=== PATIENT | female | born 1995 | race Caucasian/White ===

== ENCOUNTER 2019-01-09 04:54 | Emergency (ER) | payer BC ==
--- NOTE | 2019-01-09 05:39 | EDM.PDOC ---
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 Deshpande is a very pleasant 23-year-old woman who is 12 weeks 4 days gestation of her first . LMP 10/13/2018. WIN 07/20/2019. She has undergone 3 obstetric ultrasounds so far, with the most recent around 12/23/2018 , confirming a SLIUP with no mention of placenta previa. The patient states that she woke around 4:20 this morning, then noticed that she had painless vaginal bleeding around 4:30. No prior bleeding during this . No recent illnesses. The patient states that the amount of bleeding has now diminished considerably. heart tones here in the ED are 157. The patient's blood type is O-positive. The patient's Intrusion Analyst is Dr. Hilda Correia, in [place]. The patient did receive an influenza vaccine this season. 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: Endometriosis (laparoscopy-confirmed) Endocrine/Metabolic History: Reports: Hypothyroidism - Past Surgical History HEENT Surgical History: Reports: Eye Surgery (left strabismus) Female Surgical History: Reports: Other (See Below) (Exploratory laparoscopy for endometriosis) Musculoskeletal Surgical History: Reports: Other (See Below) (Coccyx removed as an infant) Social & Family History - Tobacco Use Smoking Status *Q: Never Smoker - Caffeine Use Caffeine Use: Reports: Coffee - Alcohol Use Alcohol Use History: Yes Alcohol Use Frequency: Socially (when not ) - Recreational Drug Use Recreational Drug Use: No - Living Situation & Occupation Living situation: Reports: , with Spouse Occupation: Employed ([employer]) ED ROS GENERAL - Review of Systems Review Of Systems: ROS reveals no pertinent complaints other than HPI. ED EXAM - Physical Exam Exam: See Below Exam Limited By: No Limitations General Appearance: Alert, WD/WN, No Apparent Distress Eye Exam: Bilateral Eye: EOMI, Normal Inspection Ears: Normal External Exam, Hearing Grossly Normal Nose: Normal Inspection Throat/Mouth: Normal Inspection, Normal Lips, Normal Voice, No Airway Compromise Head: Atraumatic, Normocephalic Neck: Normal Inspection, Full Range of Motion Respiratory/Chest: No Respiratory Distress, Lungs Clear, Normal Breath Sounds, No Accessory Muscle Use Cardiovascular: Normal Peripheral Pulses, Regular Rate, Rhythm, No Gallop, No JVD, No Murmur, No Rub GI/Abdominal Exam: Normal Bowel Sounds, Soft, Non-Tender, No Organomegaly, No Distention, No Abnormal Bruit, Mass (Gravid uterus consistent with dates) Rectal Exam: Deferred Back Exam: Normal Inspection, Full Range of Motion, NT Extremities: Normal Inspection, Normal Range of Motion, No Pedal Edema, Normal Capillary Refill Neurological: Alert, Oriented, Normal Cognition, No Motor/Sensory Deficits Psychiatric: Normal Affect Skin Exam: Warm, Dry, Intact, Normal Color, No Rash Course - Vital Signs Last Recorded V/S: Last Vital Signs Temp 37.0 C 01/09/19 05:00 Pulse 85 01/09/19 05:00 Resp 16 01/09/19 05:00 BP 119/81 01/09/19 05:00 Pulse Ox 96 01/09/19 05:00 - Re-Assessments/Exams Free Text/Narrative Re-Assessment/Exam: 01/09/19 05:34 The heart tones were about 157. We discussed the option of obtaining an ultrasound and/or a quantitative hCG, however, the patient and her are satisfied with my explanation of the likely cause of the bleeding, that is, of a subchorionic tear. I explained that this threatens the , but that management at this stage is expectant until the symptoms either resolve or progress to an inevitable, incomplete, or complete . At this time, however, with normal heart tones, the fetus appears to be in good shape. Since the bleeding is already tapering off, and the patient has no pain associated with the bleeding, the patient opted to not undergo an ultrasound. Similarly, because heart tones are acquireable, quantitative hCGs are no longer really useful. Since the patient's blood type is O-positive, she does not need RhoGAM. The patient will contact her Intrusion Analyst's office later this morning, and follow-up at her direction. Departure - Departure Time of Disposition: 05:37 Disposition: Home, Self-Care 01 Condition: Good Clinical Impression: Threatened - Discharge Information *PRESCRIPTION DRUG MONITORING PROGRAM REVIEWED*: Not Applicable *COPY OF PRESCRIPTION DRUG MONITORING REPORT IN PATIENT SERGIO: Not Applicable Referrals: Hilda Correia MD [Ordering Only Provider] - Additional Instructions: You were seen in the emergency room after developing vaginal bleeding during your 12th weeks of , this morning. heart tones in the ER were normal at 157. The option of an obstetric ultrasound to evaluate for the source of the bleeding was offered, but declined. Based on your history and physical examination, you are suffering a threatened . We recommend that you contact the office of your Intrusion Analyst, Dr. Hilda Correia, this morning, and follow-up with her at her direction. If any other problems, including worsening bleeding or the development of pain, please do not hesitate to return to the ER.
== END 2019-01-09 05:51 | disposition home or self-care (01) ==
LOC: JD.ED 04:54
DX: O20.0 Threatened abortion (principal); O99.281 Endocrine, nutritional and metabolic diseases complicating pregnancy, first trimester; E03.9 Hypothyroidism, unspecified; Z3A.12 12 weeks gestation of pregnancy; Z79.890 Hormone replacement therapy
CPT/HCPCS: 99282; 99283

== ENCOUNTER 2019-07-20 06:51 | Inpatient (IN) | payer BC ==
[2019-07-20] MEDS ORDERED: Nalbuphine 10 MG/ML Syringe IVPUSH PRN (07:03)
[2019-07-20] MEDS ORDERED: Sodium Chloride 0.9% 10 ML Syringe FLUSH PRN (07:03)
[2019-07-20] MEDS ORDERED: Ondansetron 4 MG/2 ML SDV IVPUSH PRN (07:03)
[2019-07-20] MEDS ORDERED: Misoprostol 25 MCG (1/4 of 100 MCG) Tab ONE (07:10)
[2019-07-20] MEDS ORDERED: Oxytocin/Lactated Ringers 10 UNIT/1,000 ML BAG IV SCH ×2 (07:15)
--- NOTE | 2019-07-20 07:23 | PCM.LDHP ---
L&D History of Present Illness - General Date of Service: 07/20/19 Admit Problem/Dx: Patient Status Order with Admit Dx/Problem 07/20/19 07:04 Patient Status [ADT] Routine Admission Diagnosis/Problem Admission Diagnosis/Problem Gestational diabetes mellitus Source of Information: Patient History Limitations: Reports: No Limitations - History of Present Illness Introduction:: patient is a 23-year-old at 39-2/7 weeks presents for induction of labor for gestational diabetes which is insulin controlled. Doing well. Notes good movement. No signs or symptoms of labor. 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 : 1 Para: 0 Neurological History: Reports: Migraines Endocrine/Metabolic History: Reports: Hypothyroidism - Past Surgical History HEENT Surgical History: Reports: Eye Surgery (left) Female Surgical History: Reports: Other (See Below) (Diagnostic laparoscopy for endometriosis and cocurrent hysteroscopy) Musculoskeletal Surgical History: Reports: Other (See Below) (Coccyx removed as an infant) Social & Family History - Family History Family Medical History: Noncontributory - Tobacco Use Smoking Status *Q: Never Smoker - Caffeine Use Caffeine Use: Reports: Coffee - Alcohol Use Alcohol Use History: No - Recreational Drug Use Recreational Drug Use: No - Living Situation & Occupation Living situation: Reports: , with Spouse Occupation: Employed ([employer]) H&P Review of Systems - Review of Systems: Review Of Systems: See Below General: Reports: No Symptoms Pulmonary: Reports: No Symptoms Cardiovascular: Reports: No Symptoms Gastrointestinal: Reports: No Symptoms Genitourinary: Reports: No Symptoms Musculoskeletal: Reports: No Symptoms Psychiatric: Reports: No Symptoms Neurological: Reports: No Symptoms L&D Exam - Exam Exam: See Below - OB Specific Contraction Intensity: Irritability Movement: Active Heart Tones: Present Heart Tones per Min: 135 Heart Rate (FHR) Variability: Moderate (6-25 bmp) Presentation: Vertex - Willett Score Willett Score Cervix Position: Midposition Willett Score Consistency: Soft Willett Score Effacement: 51-70% Willett Score Dilation: 1-2 cm Willett Score 's Station: -2 Willett Score Total: 7 - Exam General: Alert, Oriented, Cooperative Lungs: Clear to Auscultation, Normal Respiratory Effort Cardiovascular: Regular Rate, Regular Rhythm GI/Abdominal Exam: Soft, Non-Tender Genitourinary: Normal external exam Extremities: Normal Inspection Skin: Warm, Dry, Intact - Patient Data Result Diagrams: 07/20/19 07:48 - Problem List (1) 39 weeks gestation of SNOMED Code(s): 24184931 ICD Code: Z3A.39 - 39 WEEKS GESTATION OF Status: Acute Current Visit: Yes (2) Hypothyroid SNOMED Code(s): 70675819 ICD Code: E03.9 - HYPOTHYROIDISM, UNSPECIFIED Status: Acute Current Visit : Yes Qualifiers: Hypothyroidism type: unspecified Qualified Code(s): E03.9 - Hypothyroidism , unspecified (3) Insulin controlled gestational diabetes mellitus (GDM) during SNOMED Code(s): 88785708 ICD Code: O24.414 - GESTATIONAL DIABETES IN , INSULIN CONTROLLED Status: Acute Current Visit: Yes Qualifiers: Trimester: third trimester Qualified Code(s): O24.414 - Gestational diabetes mellitus in , insulin controlled (4) GBS carrier SNOMED Code(s): 9367323779125 ICD Code: Z22.330 - CARRIER OF GROUP B STREPTOCOCCUS Status: Acute Current Visit: Yes Problem List Initiated/Reviewed/Updated: Yes Orders Last 24hrs: Active Orders 24 hr Category Date Time Status Patient Status [ADT] Routine ADT 07/20/19 07:04 Active Blood Glucose Check, Bedside [RC] Q4H Care 07/20/19 07:03 Active Communication Order [RC] ASDIRECTED Care 07/20/19 07:04 Active Communication Order [RC] ASDIRECTED Care 07/20/19 07:04 Active Communication Order [RC] ASDIRECTED Care 07/20/19 07:04 Active Heart Tones [RC] ASDIRECTED Care 07/20/19 07:04 Active Monitoring [RC] INTERMITTENT Care 07/20/19 07:04 Active Non Stress Test [RC] PER UNIT ROUTINE Care 07/20/19 07:04 Active Notify Provider [RC] ASDIRECTED Care 07/20/19 07:04 Active Notify Provider [RC] PRN Care 07/20/19 07:04 Active Peripheral IV Care [RC] . DIRECTED Care 07/20/19 07:04 Active Vaginal Exam [RC] ASDIRECTED Care 07/20/19 07:04 Active Vital Signs [RC] ASDIRECTED Care 07/20/19 07:04 Active Regular Diet [DIET] Diet 07/20/19 Breakfast Active CBC W/O DIFF,HEMOGRAM [HEME] Routine Lab 07/20/19 07:03 Ordered RAPID PLASMA REAGIN,RPR [CHEM] Routine Lab 07/20/19 07:04 Ordered TYPE AND SCREEN [BBK] Routine Lab 07/20/19 07:03 Ordered Lactated Ringers [Ringers, Lactated] 1,000 ml Med 07/20/19 07:15 Active IV ASDIRECTED Nalbuphine [Nubain] Med 07/20/19 07:03 Active 10 mg IVPUSH Q2H PRN Ondansetron [Zofran] Med 07/20/19 07:03 Active 4 mg IVPUSH Q4H PRN Oxytocin/Lactated Ringers [Pitocin in LR 10 Units/1,000 Med 07/20/19 07:15 Active ML] 10 unit in 1,000 ml IV .CONTINUOUS Oxytocin/Lactated Ringers [Pitocin in LR 10 Units/1,000 Med 07/20/19 07:15 Active ML] 10 unit in 1,000 ml IV TITRATE Penicillin G Potassium [Pfizerpen] 2.5 millunits Med 07/20/19 12:00 Active Sodium Chloride 0.9% [Normal Saline] 100 ml IV Q4H Penicillin G Potassium [Pfizerpen] 5 millunits Med 07/20/19 08:00 Active Sodium Chloride 0.9% [Normal Saline] 100 ml IV ONETIME Sodium Chloride 0.9% [Saline Flush] Med 07/20/19 07:03 Active 10 ml FLUSH ASDIRECTED PRN miSOPROStoL [Cytotec] Med 07/20/19 07:03 Active 25 mcg VAG Q4H PRN Electronic Heart Tones Ext w TOCO [WOMSER] Ot 07/20/19 07:04 Ordered Routine Electronic Heart Tones Internal [WOMSER] Per Unit Ot 07/20/19 07:04 Ordered Routine Medication Administration Instruction [OM.PC] Ot 07/20/19 07:15 Ordered ASDIRECTED Peripheral IV Insertion Adult [OM.PC] Routine Oth 07/20/19 07:04 Ordered Resuscitation Status Routine Resus Stat 07/20/19 07:03 Ordered Medication Orders Lactated Ringer's (Ringers, Lactated) 1,000 mls @ 40 mls/hr IV ASDIRECTED GILDA Oxytocin/Lactated Ringer's (Pitocin In Lr 10 Units/1,000 Ml) 10 unit in 1,000 mls @ 12 mls/hr IV TITRATE GILDA; Protocol Oxytocin/Lactated Ringer's (Pitocin In Lr 10 Units/1,000 Ml) 10 unit in 1,000 mls @ 500 mls/hr IV .CONTINUOUS GILDA Penicillin G Potassium 5 (millunits/ Sodium Chloride) 100 mls @ 55 mls/hr IV ONETIME ONE Stop: 07/20/19 09:49 Penicillin G Potassium 2.5 (millunits/ Sodium Chloride) 100 mls @ 55 mls/hr IV Q4H GILDA Misoprostol (Cytotec) 25 mcg VAG Q4H PRN PRN Reason: cervical ripening Nalbuphine HCl (Nubain) 10 mg IVPUSH Q2H PRN PRN Reason: Pain Ondansetron HCl (Zofran) 4 mg IVPUSH Q4H PRN PRN Reason: Nausea/Vomiting Sodium Chloride (Saline Flush) 10 ml FLUSH ASDIRECTED PRN PRN Reason: Keep Vein Open Assessment/Plan Comment:: * Labs done * GBS positive, will start PCN in active labor * Cytotec for IOL, pitocin and AROM when able * Took home insulin (Levemir 38 units) last night. Blood sugars q4 in early labor, q2 in active * Pain management per patient preference * Anticipate * Home Synthroid
[2019-07-20] MEDS ORDERED: Penicillin G Potassium 5 MILLUNITS in Sodium Chloride 0.9% 100 ML IV ONE (08:00)
[2019-07-20] MEDS ORDERED: ePHEDrine 50 MG/ML SDV IVPUSH PRN (08:46)
[2019-07-20] MEDS ORDERED: diphenhydrAMINE 50 MG/ML SDV IVPUSH PRN (08:46)
[2019-07-20] MEDS ORDERED: fentaNYL 100 MCG/2 ML SDV EPIDUR PRN (08:46)
--- NOTE | 2019-07-20 08:48 | PCM.PREANE ---
Preanesthetic Assessment - Procedure Proposed Procedure: Epidural - Anesthesia/Transfusion/Family Hx Anesthesia History: Prior Anesthesia Without Reaction Family History of Anesthesia Reaction: No - Review of Systems General: No Symptoms Pulmonary: No Symptoms Cardiovascular: No Symptoms Gastrointestinal: No Symptoms Neurological: No Symptoms Other: Reports: Diabetes (Gestational Diabetes) - Physical Assessment Vital Signs: Last Vital Signs Temp 36.4 C 07/20/19 07:14 Pulse 68 07/20/19 07:14 Resp 15 07/20/19 07:14 BP 125/85 07/20/19 07:14 Pulse Ox 100 07/20/19 07:14 Height: 54 cm Weight: 85.275 kg ASA Class: 2 Mental Status: Alert & Oriented x3 Airway Class: Mallampati = 2 Dentition: Reports: Normal Dentition Thyro-Mental Finger Breadths: 3 Mouth Opening Finger Breadths: 3 ROM/Head Extension: Full Lungs: Clear to Auscultation, Normal Respiratory Effort Cardiovascular: Regular Rate, Regular Rhythm - Lab Values: Laboratory Last Values WBC 6.46 K/mm3 (3.98-10.04) 07/20/19 07:48 RBC 3.89 M/mm3 (3.98-5.22) L 07/20/19 07:48 Hgb 10.5 gm/dl (11.2-15.7) L 07/20/19 07:48 Hct 32.6 % (34.1-44.9) L 07/20/19 07:48 MCV 83.8 fl (79.4-94.8) 07/20/19 07:48 MCH 27.0 pg (25.6-32.2) 07/20/19 07:48 MCHC 32.2 g/dl (32.2-35.5) 07/20/19 07:48 RDW Std Deviation 42.4 fL (36.4-46.3) 07/20/19 07:48 Plt Count 202 K/mm3 (182-369) 07/20/19 07:48 MPV 9.7 fl (9.4-12.3) 07/20/19 07:48 - Allergies Allergies/Adverse Reactions: Allergies Allergy/AdvReac Type Severity Reaction Status Date / Time No Known Allergies Allergy Verified 01/09/19 05:04 - Acknowledgements Anesthesia Type Planned: Epidural Pt an Appropriate Candidate for the Planned Anesthesia: Yes Alternatives and Risks of Anesthesia Discussed w Pt/Guardian: Yes Pt/Guardian Understands and Agrees with Anesthesia Plan: Yes PreAnesthesia Questionnaire Cardiovascular History: Reports: High Cholesterol (untreated) 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 Neurological History: Reports: Migraines Endocrine/Metabolic History: Reports: Hypothyroidism - Past Surgical History HEENT Surgical History: Reports: Eye Surgery (left) Female Surgical History: Reports: Other (See Below) (Diagnostic laparoscopy for endometriosis and cocurrent hysteroscopy) Musculoskeletal Surgical History: Reports: Other (See Below) (Coccyx removed as an ) - SUBSTANCE USE Smoking Status *Q: Never Smoker Recreational Drug Use History: No - HOME MEDS Home Medications: Home Meds Ferrous Sulfate [Slow Fe] 140 mg PO DAILY 01/09/19 [History] Levothyroxine Sodium 88 mcg PO ACBREAKFAST 01/09/19 [History] Pnv No.95/Ferrous Fum/Folic AC [ Caplet] 1 tab PO DAILY 01/09/19 [ History] Insulin Detemir [Levemir] 38 unit SUBCUT BEDTIME 07/06/19 [History] - CURRENT (IN HOUSE) MEDS Current Meds: Current Medications Lactated Ringer's (Ringers, Lactated) 1,000 mls @ 40 mls/hr IV ASDIRECTED GILDA Oxytocin/Lactated Ringer's (Pitocin In Lr 10 Units/1,000 Ml) 10 unit in 1,000 mls @ 12 mls/hr IV TITRATE GILDA; Protocol Oxytocin/Lactated Ringer's (Pitocin In Lr 10 Units/1,000 Ml) 10 unit in 1,000 mls @ 500 mls/hr IV .CONTINUOUS GILDA Penicillin G Potassium 5 (millunits/ Sodium Chloride) 100 mls @ 55 mls/hr IV ONETIME ONE Stop: 07/20/19 09:49 Penicillin G Potassium 2.5 (millunits/ Sodium Chloride) 100 mls @ 55 mls/hr IV Q4H GILDA Levothyroxine Sodium (Synthroid) 88 mcg PO ACBREAKFAST GILDA Misoprostol (Cytotec) 25 mcg VAG Q4H PRN PRN Reason: cervical ripening Nalbuphine HCl (Nubain) 10 mg IVPUSH Q2H PRN PRN Reason: Pain Ondansetron HCl (Zofran) 4 mg IVPUSH Q4H PRN PRN Reason: Nausea/Vomiting Sodium Chloride (Saline Flush) 10 ml FLUSH ASDIRECTED PRN PRN Reason: Keep Vein Open Discontinued Medications Misoprostol (Cytotec) Confirm Administered Dose 25 mcg .ROUTE .[facility] ONE Stop: 07/20/19 07:11 Last Admin: 07/20/19 07:14 Dose: 25 mcg
[2019-07-20] MEDS: Misoprostol 25 MCG (1/4 of 100 MCG) Tab VAG PRN ×2 (11:34→15:25)
[2019-07-20] MEDS: Lactated Ringers 1,000 ML IV SCH ×3 (19:47→22:32)
--- NOTE | 2019-07-20 19:53 | PCM.PNLD ---
Labor Progress Note - VS & Meds Vital Signs: Last Vital Signs Temp 36.4 C 07/20/19 07:14 Pulse 68 07/20/19 07:14 Resp 15 07/20/19 07:14 BP 125/85 07/20/19 07:14 Pulse Ox 100 07/20/19 07:14 Active Medications: Current Medications Diphenhydramine HCl (Benadryl) 25 mg IVPUSH Q6H PRN PRN Reason: pruritis Ephedrine Sulfate (Ephedrine Sulfate) 5 mg IVPUSH ASDIRECTED PRN PRN Reason: Hypotension Fentanyl (Sublimaze) 100 mcg EPIDUR Q3H PRN PRN Reason: Pain Fentanyl/Bupivacaine HCl (Fentanyl/Bupivacaine/Ns 2 Mcg-0.125% 100 Ml) 100 ml EPIDUR ASDIRECTED PRN PRN Reason: Pain Lactated Ringer's (Ringers, Lactated) 1,000 mls @ 40 mls/hr IV ASDIRECTED GILDA Last Admin: 07/20/19 19:47 Dose: 40 mls/hr Oxytocin/Lactated Ringer's (Pitocin In Lr 10 Units/1,000 Ml) 10 unit in 1,000 mls @ 12 mls/hr IV TITRATE GILDA; Protocol Oxytocin/Lactated Ringer's (Pitocin In Lr 10 Units/1,000 Ml) 10 unit in 1,000 mls @ 500 mls/hr IV .CONTINUOUS GILDA Penicillin G Potassium 2.5 (millunits/ Sodium Chloride) 100 mls @ 55 mls/hr IV Q4H GILDA Levothyroxine Sodium (Synthroid) 88 mcg PO ACBREAKFAST GILDA Misoprostol (Cytotec) 25 mcg VAG Q4H PRN PRN Reason: cervical ripening Last Admin: 07/20/19 15:25 Dose: 25 mcg Nalbuphine HCl (Nubain) 10 mg IVPUSH Q2H PRN PRN Reason: Pain Last Admin: 07/20/19 19:47 Dose: 10 mg Ondansetron HCl (Zofran) 4 mg IVPUSH Q4H PRN PRN Reason: Nausea/Vomiting Sodium Chloride (Saline Flush) 10 ml FLUSH ASDIRECTED PRN PRN Reason: Keep Vein Open Discontinued Medications Penicillin G Potassium 5 (millunits/ Sodium Chloride) 100 mls @ 55 mls/hr IV ONETIME ONE Stop: 07/20/19 09:49 Misoprostol (Cytotec) Confirm Administered Dose 25 mcg .ROUTE .[facility] ONE Stop: 07/20/19 07:11 Last Admin: 07/20/19 07:14 Dose: 25 mcg - Uterine Contractions Uterine Monitoring Mode: External [place] Contraction Intensity: Moderate to Strong - Monitoring Monitor Mode: External Ultrasound Heart Rate (FHR) Baseline: 125 Heart Rate (FHR) Variability: Moderate (6-25 bmp) Accelerations: Present, 15x15 Decelerations: None Strip Review: Category I - Vaginal Exam Dilation (cm): 2-3 Effacement (Percent): 75 Station: -2 Cervical Position: Posterior - Labor Progress (Free Text) Labor Progress: Doing well. Just had SROM of clear fluid. Will allow to labor on her own for awhile and then initiate pitocin if needed. Will start PCN for GBS prophylaxis. Continue blood sugar checks.
[2019-07-20] MEDS: Penicillin G Potassium 2.5 MILLUNITS in Sodium Chloride 0.9% 100 ML IV SCH ×2 (19:58→19:59)
[2019-07-20] MEDS: Bupivacaine/fentaNYL/NS 100 ML Bag EPIDUR PRN (21:12)
[2019-07-21] MEDS ORDERED: Bupivacaine 0.25% 10 ML SDV ONE
[2019-07-21] MEDS: Penicillin G Potassium 2.5 MILLUNITS in Sodium Chloride 0.9% 100 ML IV SCH ×3 (00:45→08:04)
[2019-07-21] MEDS: Lactated Ringers 1,000 ML IV SCH ×3 (03:27→11:34)
[2019-07-21] MEDS: Bupivacaine/fentaNYL/NS 100 ML Bag EPIDUR PRN (03:28)
--- NOTE | 2019-07-21 09:23 | PCM.DEL ---
L & D Note - General Info Date of Service: 07/21/19 - Delivery Note Labor: Induced by Oxytocin Cervical Ripening Method: Misoprostil Delivery Outcome: Livebirth Delivery Method: Spontaneous Vaginal Delivery-Single Delivery Mode: Spontaneous Presentation: Left Occiput Anterior (MARYBETH) Nuchal Cord: Present, Reduced Anesthesia Type: Epidural Amniotic Fluid Description: Clear Episiotomy Type: None Laceration: 2nd Degree, Labial (bilateral), Perineal Suture type: Vicryl Suture size: 2-0 Placenta: Intact, Spontaneous Cord: 3 Vessels Estimated Blood Loss: 300 Resuscitation Needed: Yes : Bulb Syringe, Stimulated, Warmed, [place] Used, Warmer Used Delivery Comments (Free Text/Narrative):: Patient found to be complete and began pushing. With maternal pushing effort head delivered from an MARYBETH presentation. Nuchal cord present and reduced. With gentle downward traction shoulders did not deliver. Patient put in deep McRobert's and suprapubic pressure applied. shoulder able to be delivered after about 45 seconds. Rest of body quickly followed. Infant placed on maternal abdomen. Cord clamped and cut. Baby taken to warmer. Cord blood obtained. Placenta allowed time to separate and and expelled intact. Bilateral labial tears were reapproximated with a running 2-0 vicryl. A 2nd degree perineal laceration was also repaired with a 2-0 vicryl in the typical fashion - General Info Date of Service: 07/21/19 - Patient Data Vitals - Most Recent: Last Vital Signs Temp 36.4 C 07/20/19 07:14 Pulse 68 07/20/19 07:14 Resp 15 07/20/19 07:14 BP 125/85 07/20/19 07:14 Pulse Ox 100 07/20/19 07:14 Weight - Most Recent: 85.275 kg Lab Results Last 24 Hours: Laboratory Results - last 24 hr 07/20/19 07/20/19 07/20/19 Range/Units 07:48 07:48 10:03 POC Glucose 96 (70-105) mg/dL RPR Non-reactive (NONREACTIVE) Gel Antibody Screen Negative 07/20/19 07/20/19 07/20/19 Range/Units 14:01 18:04 22:09 POC Glucose 100 87 85 (70-105) mg/dL RPR (NONREACTIVE) Gel Antibody Screen 07/21/19 07/21/19 07/21/19 Range/Units 02:12 05:36 07:38 POC Glucose 108 H 114 H 124 H (70-105) mg/dL RPR (NONREACTIVE) Gel Antibody Screen Med Orders - Current: Current Medications Diphenhydramine HCl (Benadryl) 25 mg IVPUSH Q6H PRN PRN Reason: pruritis Ephedrine Sulfate (Ephedrine Sulfate) 5 mg IVPUSH ASDIRECTED PRN PRN Reason: Hypotension Fentanyl (Sublimaze) 100 mcg EPIDUR Q3H PRN PRN Reason: Pain Last Admin: 07/20/19 21:11 Dose: 100 mcg Fentanyl/Bupivacaine HCl (Fentanyl/Bupivacaine/Ns 2 Mcg-0.125% 100 Ml) 100 ml EPIDUR ASDIRECTED PRN PRN Reason: Pain Last Admin: 07/21/19 03:28 Dose: 100 ml Lactated Ringer's (Ringers, Lactated) 1,000 mls @ 40 mls/hr IV ASDIRECTED GILDA Last Admin: 07/21/19 07:45 Dose: 40 mls/hr Oxytocin/Lactated Ringer's (Pitocin In Lr 10 Units/1,000 Ml) 10 unit in 1,000 mls @ 12 mls/hr IV TITRATE GILDA; Protocol Last Titration: 07/21/19 07:40 Dose: 18 munits/min, 108 mls/hr Oxytocin/Lactated Ringer's (Pitocin In Lr 10 Units/1,000 Ml) 10 unit in 1,000 mls @ 500 mls/hr IV .CONTINUOUS GILDA Penicillin G Potassium 2.5 (millunits/ Sodium Chloride) 100 mls @ 55 mls/hr IV Q4H GILDA Last Admin: 07/21/19 08:04 Dose: 55 mls/hr Levothyroxine Sodium (Synthroid) 88 mcg PO ACBREAKFAST GILDA Misoprostol (Cytotec) 25 mcg VAG Q4H PRN PRN Reason: cervical ripening Last Admin: 07/20/19 15:25 Dose: 25 mcg Nalbuphine HCl (Nubain) 10 mg IVPUSH Q2H PRN PRN Reason: Pain Last Admin: 07/20/19 19:47 Dose: 10 mg Ondansetron HCl (Zofran) 4 mg IVPUSH Q4H PRN PRN Reason: Nausea/Vomiting Last Admin: 07/21/19 04:48 Dose: 4 mg Sodium Chloride (Saline Flush) 10 ml FLUSH ASDIRECTED PRN PRN Reason: Keep Vein Open Discontinued Medications Penicillin G Potassium 5 (millunits/ Sodium Chloride) 100 mls @ 55 mls/hr IV ONETIME ONE Stop: 07/20/19 09:49 Last Admin: 07/20/19 19:54 Dose: 55 mls/hr Misoprostol (Cytotec) Confirm Administered Dose 25 mcg .ROUTE .STK-MED ONE Stop: 07/20/19 07:11 Last Admin: 07/20/19 07:14 Dose: 25 mcg - Problem List & Annotations (1) 39 weeks gestation of SNOMED Code(s): 83000226 Code(s): Z3A.39 - 39 WEEKS GESTATION OF Status: Acute Current Visit: Yes (2) Hypothyroid SNOMED Code(s): 11952860 Code(s): E03.9 - HYPOTHYROIDISM, UNSPECIFIED Status: Acute Current Visit : Yes Qualifiers: Hypothyroidism type: unspecified Qualified Code(s): E03.9 - Hypothyroidism , unspecified (3) Insulin controlled gestational diabetes mellitus (GDM) during SNOMED Code(s): 22949554 Code(s): O24.414 - GESTATIONAL DIABETES IN , INSULIN CONTROLLED Status: Acute Current Visit: Yes Qualifiers: Trimester: third trimester Qualified Code(s): O24.414 - Gestational diabetes mellitus in , insulin controlled (4) GBS carrier SNOMED Code(s): 7819534386263 Code(s): Z22.330 - CARRIER OF GROUP B STREPTOCOCCUS Status: Acute Current Visit: Yes (5) Shoulder dystocia during labor and delivery, delivered SNOMED Code(s): 456463935, 035267106 Code(s): O66.0 - OBSTRUCTED LABOR DUE TO SHOULDER DYSTOCIA Status: Acute Current Visit: Yes (6) Vaginal delivery SNOMED Code(s): 553845758 Code(s): O80 - ENCOUNTER FOR FULL-TERM UNCOMPLICATED DELIVERY Status: Acute Current Visit: Yes - Problem List Review Problem List Initiated/Reviewed/Updated: Yes - My Orders Last 24 Hours: My Active Orders 07/20/19 12:00 Penicillin G Potassium [Pfizerpen] 2.5 millunits Sodium Chloride 0.9% [Normal Saline] 100 ml IV Q4H 07/21/19 06:00 Levothyroxine [Synthroid] 88 mcg PO ACBREAKFAST 07/21/19 09:21 Patient Status Manage Transfer [TRANSFER] Routine - Assessment Assessment:: PPD#0 - Plan Plan:: * Routine cares * Breast feeding * Fasting blood sugar in am, 2hr GTT at 6 weeks * Discharge in 1-2 days * Home Synthroid
[2019-07-21] MEDS ORDERED: Benzocaine/Menthol 20%-0.5% Spray 56 GM Canister TOP PRN (10:37)
[2019-07-21] MEDS ORDERED: Acetaminophen 325 MG Tab PO PRN (10:37)
[2019-07-21] MEDS: Ibuprofen 600 MG Tab PO PRN ×2 (11:35→21:06)
[2019-07-21] MEDS: Witch Hazel Medicated Pads 40/Jar TOP PRN (11:36)
--- NOTE | 2019-07-21 16:56 | PCM48HPAN ---
Post Anesthesia Note - EVALUATION WITHIN 48HRS OF ANESTHETIC Vital Signs in Normal Range: Yes Patient Participated in Evaluation: Yes Respiratory Function Stable: Yes Airway Patent: Yes Cardiovascular Function Stable: Yes Hydration Status Stable: Yes Pain Control Satisfactory: Yes Nausea and Vomiting Control Satisfactory: Yes Mental Status Recovered: Yes Vital Signs: Last Vital Signs Temp 36.7 C 07/21/19 15:00 Pulse 95 07/21/19 15:00 Resp 14 07/21/19 15:00 BP 109/68 07/21/19 15:00 Pulse Ox 98 07/21/19 15:00
[2019-07-21] MEDS: Levothyroxine 88 MCG Tab PO SCH (18:31)
[2019-07-21] MEDS: Docusate Sodium 100 MG Cap PO PRN (21:07)
[2019-07-22] MEDS: Ibuprofen 600 MG Tab PO PRN ×2 (03:57→15:32)
--- NOTE | 2019-07-22 07:05 | PCM.PNPP ---
- General Info Date of Service: 07/22/19 Functional Status: Reports: Pain Controlled, Tolerating Diet, Ambulating, Urinating - Review of Systems General: Reports: No Symptoms Pulmonary: Reports: No Symptoms Cardiovascular: Reports: No Symptoms Gastrointestinal: Reports: No Symptoms Genitourinary: Reports: No Symptoms Musculoskeletal: Reports: No Symptoms Neurological: Reports: No Symptoms - Patient Data Vital Signs - Most Recent: Last Vital Signs Temp 36.9 C 07/22/19 02:24 Pulse 92 07/22/19 02:24 Resp 15 07/22/19 02:24 BP 110/51 L 07/22/19 02:24 Pulse Ox 97 07/22/19 02:24 Weight - Most Recent: 85.275 kg Lab Results - Last 24 Hours: Laboratory Results - last 24 hr 07/21/19 Range/Units 07:38 POC Glucose 124 H (70-105) mg/dL Med Orders - Current: Current Medications Acetaminophen (Tylenol) 650 mg PO Q4H PRN PRN Reason: mild pain or fever Benzocaine/Menthol (Dermoplast Pain Relief Orange) 0 gm TOP ASDIRECTED PRN PRN Reason: Perineal Comfort Measure Last Admin: 07/21/19 11:36 Dose: 1 spray Docusate Sodium (Colace) 100 mg PO BID PRN PRN Reason: Constipation Last Admin: 07/21/19 21:07 Dose: 100 mg Ibuprofen (Motrin) 600 mg PO Q6H PRN PRN Reason: Mild pain or fever Last Admin: 07/22/19 03:57 Dose: 600 mg Levothyroxine Sodium (Synthroid) 88 mcg PO ACBREAKFAST GILDA Last Admin: 07/21/19 18:31 Dose: Not Given Matthew Nunu (Tucks) 1 pad TOP ASDIRECTED PRN PRN Reason: Perineal Comfort Measure Last Admin: 07/21/19 11:36 Dose: 1 pad Discontinued Medications Bupivacaine HCl (Sensorcaine-Mpf 0.25%) 10 ml .ROUTE .STK-MED ONE Stop: 07/21/19 00:01 Diphenhydramine HCl (Benadryl) 25 mg IVPUSH Q6H PRN PRN Reason: pruritis Ephedrine Sulfate (Ephedrine Sulfate) 5 mg IVPUSH ASDIRECTED PRN PRN Reason: Hypotension Fentanyl (Sublimaze) 100 mcg EPIDUR Q3H PRN PRN Reason: Pain Last Admin: 07/20/19 21:11 Dose: 100 mcg Fentanyl/Bupivacaine HCl (Fentanyl/Bupivacaine/Ns 2 Mcg-0.125% 100 Ml) 100 ml EPIDUR ASDIRECTED PRN PRN Reason: Pain Last Admin: 07/21/19 03:28 Dose: 100 ml Lactated Ringer's (Ringers, Lactated) 1,000 mls @ 40 mls/hr IV ASDIRECTED GILDA Last Admin: 07/21/19 11:34 Dose: 40 mls/hr Oxytocin/Lactated Ringer's (Pitocin In Lr 10 Units/1,000 Ml) 10 unit in 1,000 mls @ 12 mls/hr IV TITRATE GILDA; Protocol Last Titration: 07/21/19 07:40 Dose: 18 munits/min, 108 mls/hr Oxytocin/Lactated Ringer's (Pitocin In Lr 10 Units/1,000 Ml) 10 unit in 1,000 mls @ 500 mls/hr IV .CONTINUOUS GILDA Penicillin G Potassium 5 (millunits/ Sodium Chloride) 100 mls @ 55 mls/hr IV ONETIME ONE Stop: 07/20/19 09:49 Last Admin: 07/20/19 19:54 Dose: 55 mls/hr Penicillin G Potassium 2.5 (millunits/ Sodium Chloride) 100 mls @ 55 mls/hr IV Q4H GILDA Last Admin: 07/21/19 08:04 Dose: 55 mls/hr Misoprostol (Cytotec) 25 mcg VAG Q4H PRN PRN Reason: cervical ripening Last Admin: 07/20/19 15:25 Dose: 25 mcg Misoprostol (Cytotec) Confirm Administered Dose 25 mcg .ROUTE .STK-MED ONE Stop: 07/20/19 07:11 Last Admin: 07/20/19 07:14 Dose: 25 mcg Nalbuphine HCl (Nubain) 10 mg IVPUSH Q2H PRN PRN Reason: Pain Last Admin: 07/20/19 19:47 Dose: 10 mg Ondansetron HCl (Zofran) 4 mg IVPUSH Q4H PRN PRN Reason: Nausea/Vomiting Last Admin: 07/21/19 04:48 Dose: 4 mg Sodium Chloride (Saline Flush) 10 ml FLUSH ASDIRECTED PRN PRN Reason: Keep Vein Open - Interaction Disposition, : in Room with Family Infant Interaction: Holding Infant Feeding: Attempted ; Nursed Fair/Poor - Recovery Exam Fundal Tone: Firm Fundal Level: At Umbilicus Fundal Placement: Midline Lochia Amount: Small Lochia Color: Rubra/Red Perineum Description: Other (see below) Other Perinuem Description: bilateral labial lac and 2nd degree with repair Episiotomy/Laceration: Approximated Bladder Status: Voiding Urinary Elimination: Voided - Exam General: Alert, Oriented, Cooperative GI/Abdominal Exam: Soft, Non-Tender Extremities: Normal Inspection Skin: Warm, Dry, Intact - Problem List & Annotations (1) 39 weeks gestation of SNOMED Code(s): 96063876 Code(s): Z3A.39 - 39 WEEKS GESTATION OF Status: Acute Current Visit: Yes (2) Hypothyroid SNOMED Code(s): 56759255 Code(s): E03.9 - HYPOTHYROIDISM, UNSPECIFIED Status: Acute Current Visit : Yes Qualifiers: Hypothyroidism type: unspecified Qualified Code(s): E03.9 - Hypothyroidism , unspecified (3) Insulin controlled gestational diabetes mellitus (GDM) during SNOMED Code(s): 53924846 Code(s): O24.414 - GESTATIONAL DIABETES IN , INSULIN CONTROLLED Status: Acute Current Visit: Yes Qualifiers: Trimester: third trimester Qualified Code(s): O24.414 - Gestational diabetes mellitus in , insulin controlled (4) GBS carrier SNOMED Code(s): 3273740846444 Code(s): Z22.330 - CARRIER OF GROUP B STREPTOCOCCUS Status: Acute Current Visit: Yes (5) Shoulder dystocia during labor and delivery, delivered SNOMED Code(s): 437658134, 996217350 Code(s): O66.0 - OBSTRUCTED LABOR DUE TO SHOULDER DYSTOCIA Status: Acute Current Visit: Yes (6) Vaginal delivery SNOMED Code(s): 658944629 Code(s): O80 - ENCOUNTER FOR FULL-TERM UNCOMPLICATED DELIVERY Status: Acute Current Visit: Yes - Problem List Review Problem List Initiated/Reviewed/Updated: Yes - My Orders Last 24 Hours: My Active Orders 07/21/19 10:37 Activity as Tolerated [RC] PER UNIT ROUTINE Vital Signs [RC] 03,09,15,21 Acetaminophen [Tylenol] 650 mg PO Q4H PRN Benzocaine/Menthol [Dermoplast Pain Relief Orange] See Dose Instructions TOP ASDIRECTED PRN Docusate Sodium [Colace] 100 mg PO BID PRN Ibuprofen [Motrin] 600 mg PO Q6H PRN witch Nunu [Tucks] 1 pad TOP ASDIRECTED PRN Assess Lochia [WOMSER] Per Unit Routine Assess Uterine Involution [WOMSER] Per Unit Routine Breast Pump [WOMSER] Per Unit Routine Heat Therapy [OM.PC] PRN Ice Therapy [OM.PC] Per Unit Routine Perineal Care [OM.PC] Per Unit Routine Peripheral IV Discontinue [OM.PC] Routine Sitz Bath [OM.PC] Per Unit Routine 07/21/19 Breakfast Regular Diet [DIET] 07/22/19 05:00 Blood Glucose Check, Bedside [RC] ONETIME 07/22/19 10:37 Heat Therapy [OM.PC] PRN - Assessment Assessment:: PPD#1 - Plan Plan:: * Routine cares * Breast feeding * Fasting blood sugar still to be done today, 2hr GTT at 6 weeks * Discharge tomorrow * Home Synthroid
[2019-07-22] MEDS: Levothyroxine 88 MCG Tab PO SCH (07:29)
[2019-07-22] MEDS: Docusate Sodium 100 MG Cap PO PRN (11:30)
[2019-07-22] MEDS: Witch Hazel Medicated Pads 40/Jar TOP PRN (11:30)
--- NOTE | 2019-07-22 14:04 | PCM.DCSUM1 ---
Discharge Summary - Discharge Data Discharge Date: 07/22/19 Discharge Disposition: Home, Self-Care 01 Condition: Good - Referral to Home Health Primary Care Physician: Ely Sarmiento MD - Discharge Diagnosis/Problem(s) (1) 39 weeks gestation of SNOMED Code(s): 13915515 ICD Code: Z3A.39 - 39 WEEKS GESTATION OF Status: Acute (2) Hypothyroid SNOMED Code(s): 78522127 ICD Code: E03.9 - HYPOTHYROIDISM, UNSPECIFIED Status: Acute Qualifiers: Hypothyroidism type: unspecified Qualified Code(s): E03.9 - Hypothyroidism , unspecified (3) Insulin controlled gestational diabetes mellitus (GDM) during SNOMED Code(s): 39661269 ICD Code: O24.414 - GESTATIONAL DIABETES IN , INSULIN CONTROLLED Status: Acute Qualifiers: Trimester: third trimester Qualified Code(s): O24.414 - Gestational diabetes mellitus in , insulin controlled (4) GBS carrier SNOMED Code(s): 3763746764348 ICD Code: Z22.330 - CARRIER OF GROUP B STREPTOCOCCUS Status: Acute (5) Shoulder dystocia during labor and delivery, delivered SNOMED Code(s): 699047297, 980452125 ICD Code: O66.0 - OBSTRUCTED LABOR DUE TO SHOULDER DYSTOCIA Status: Acute (6) Vaginal delivery SNOMED Code(s): 173710278 ICD Code: O80 - ENCOUNTER FOR FULL-TERM UNCOMPLICATED DELIVERY Status: Acute - Patient Summary/Data Complications: None Consults: None Recommended Follow-up Testing/Procedures: Follow up in 3 weeks for check Hospital Course: 23 y/o at 39 2/7 wks who presented for IOL for GODMA2. This was done with cytotec and then pitocin. She progressed well to complete dilation and underwent a vaginal delivery which was notable for a shoulder dystocia. See delivery note for full details. she did well and was discharged home on PPD#1 - Patient Instructions Diet: Regular Diet as Tolerated Activity: As Tolerated Activity, Other: Pelvic rest for 6 weeks Driving: May Drive Today Showering/Bathing: May Shower Showering/Bathing, Other: May Bathe Notify Provider of: Fever, Increased Pain, Swelling and Redness, Drainage, Nausea and/or Vomiting - Discharge Plan *PRESCRIPTION DRUG MONITORING PROGRAM REVIEWED*: Not Applicable *COPY OF PRESCRIPTION DRUG MONITORING REPORT IN PATIENT SERGIO: Not Applicable Home Medications: Home Meds Levothyroxine Sodium 88 mcg PO ACBREAKFAST 01/09/19 [History] Pnv No.95/Ferrous Fum/Folic AC [ Caplet] 1 tab PO DAILY 01/09/19 [ History] Docusate Sodium [Colace] 100 mg PO BID PRN cap 07/21/19 [Rx] Ibuprofen [Motrin] 600 mg PO Q6H PRN tablet 07/21/19 [Rx] Patient Handouts: Care After Vaginal Delivery Referrals: Ely Sarmiento MD [Primary Care Provider] - (3 weeks for check - can be telehealth ) - Discharge Summary/Plan Comment DC Time >30 min.: No - Patient Data Vitals - Most Recent: Last Vital Signs Temp 36.6 C 07/22/19 08:11 Pulse 89 07/22/19 08:11 Resp 16 07/22/19 08:11 BP 120/75 07/22/19 08:11 Pulse Ox 97 07/22/19 08:11 Weight - Most Recent: 85.275 kg I&O - Last 24 hours: Intake & Output 07/21/19 07/22/19 07/22/19 22:59 06:59 14:59 Intake Total 320 240 Balance 320 240 Lab Results - Last 24 hrs: Laboratory Results - last 24 hr 07/22/19 Range/Units 08:09 POC Glucose 99 (70-105) mg/dL Med Orders - Current: Current Medications Acetaminophen (Tylenol) 650 mg PO Q4H PRN PRN Reason: mild pain or fever Benzocaine/Menthol (Dermoplast Pain Relief [place]) 0 gm TOP ASDIRECTED PRN PRN Reason: Perineal Comfort Measure Last Admin: 07/21/19 11:36 Dose: 1 spray Docusate Sodium (Colace) 100 mg PO BID PRN PRN Reason: Constipation Last Admin: 07/22/19 11:30 Dose: 100 mg Ibuprofen (Motrin) 600 mg PO Q6H PRN PRN Reason: Mild pain or fever Last Admin: 07/22/19 03:57 Dose: 600 mg Levothyroxine Sodium (Synthroid) 88 mcg PO ACBREAKFAST GILDA Last Admin: 07/22/19 07:29 Dose: Not Given Matthew Eddy (Niki) 1 pad TOP ASDIRECTED PRN PRN Reason: Perineal Comfort Measure Last Admin: 07/22/19 11:30 Dose: 1 pad Discontinued Medications Bupivacaine HCl (Sensorcaine-Mpf 0.25%) 10 ml .ROUTE .STK-MED ONE Stop: 07/21/19 00:01 Diphenhydramine HCl (Benadryl) 25 mg IVPUSH Q6H PRN PRN Reason: pruritis Ephedrine Sulfate (Ephedrine Sulfate) 5 mg IVPUSH ASDIRECTED PRN PRN Reason: Hypotension Fentanyl (Sublimaze) 100 mcg EPIDUR Q3H PRN PRN Reason: Pain Last Admin: 07/20/19 21:11 Dose: 100 mcg Fentanyl/Bupivacaine HCl (Fentanyl/Bupivacaine/Ns 2 Mcg-0.125% 100 Ml) 100 ml EPIDUR ASDIRECTED PRN PRN Reason: Pain Last Admin: 07/21/19 03:28 Dose: 100 ml Lactated Ringer's (Ringers, Lactated) 1,000 mls @ 40 mls/hr IV ASDIRECTED GILDA Last Admin: 07/21/19 11:34 Dose: 40 mls/hr Oxytocin/Lactated Ringer's (Pitocin In Lr 10 Units/1,000 Ml) 10 unit in 1,000 mls @ 12 mls/hr IV TITRATE GILDA; Protocol Last Titration: 07/21/19 07:40 Dose: 18 munits/min, 108 mls/hr Oxytocin/Lactated Ringer's (Pitocin In Lr 10 Units/1,000 Ml) 10 unit in 1,000 mls @ 500 mls/hr IV .CONTINUOUS GILDA Penicillin G Potassium 5 (millunits/ Sodium Chloride) 100 mls @ 55 mls/hr IV ONETIME ONE Stop: 07/20/19 09:49 Last Admin: 07/20/19 19:54 Dose: 55 mls/hr Penicillin G Potassium 2.5 (millunits/ Sodium Chloride) 100 mls @ 55 mls/hr IV Q4H GILDA Last Admin: 07/21/19 08:04 Dose: 55 mls/hr Misoprostol (Cytotec) 25 mcg VAG Q4H PRN PRN Reason: cervical ripening Last Admin: 07/20/19 15:25 Dose: 25 mcg Misoprostol (Cytotec) Confirm Administered Dose 25 mcg .ROUTE .STK-MED ONE Stop: 07/20/19 07:11 Last Admin: 07/20/19 07:14 Dose: 25 mcg Nalbuphine HCl (Nubain) 10 mg IVPUSH Q2H PRN PRN Reason: Pain Last Admin: 07/20/19 19:47 Dose: 10 mg Ondansetron HCl (Zofran) 4 mg IVPUSH Q4H PRN PRN Reason: Nausea/Vomiting Last Admin: 07/21/19 04:48 Dose: 4 mg Sodium Chloride (Saline Flush) 10 ml FLUSH ASDIRECTED PRN PRN Reason: Keep Vein Open
== END 2019-07-22 18:00 | disposition home or self-care (01) | DRG 560 ==
LOC: JD.OB 06:51 → OBSVTOIN 07-21 08:56 → JD.OB 07-21 08:57
PROVIDERS: ADMIT Obstetrics & Gynecology; ATTEND Obstetrics & Gynecology
PROC: 10E0XZZ Delivery of Products of Conception, External Approach (ICD-10-PCS; principal; 2019-07-21)
PROC: 3E0P7VZ Introduction of Hormone into Female Reproductive, Via Natural or Artificial Opening (ICD-10-PCS; 2019-07-21)
PROC: 10907ZC Drainage of Amniotic Fluid, Therapeutic from Products of Conception, Via Natural or Artificial Opening (ICD-10-PCS; 2019-07-21)
PROC: 3E033VJ Introduction of Other Hormone into Peripheral Vein, Percutaneous Approach (ICD-10-PCS; 2019-07-21)
PROC: 0KQM0ZZ Repair Perineum Muscle, Open Approach (ICD-10-PCS; 2019-07-21)
PROC: 0UQMXZZ Repair Vulva, External Approach (ICD-10-PCS; 2019-07-21)
PROC: 3E0R3BZ Introduction of Anesthetic Agent into Spinal Canal, Percutaneous Approach (ICD-10-PCS; 2019-07-21)
DX: O24.424 Gestational diabetes mellitus in childbirth, insulin controlled (principal); Z3A.39 39 weeks gestation of pregnancy; Z37.0 Single live birth; O66.0 Obstructed labor due to shoulder dystocia; O99.284 Endocrine, nutritional and metabolic diseases complicating childbirth; E03.9 Hypothyroidism, unspecified; O99.824 Streptococcus B carrier state complicating childbirth; O69.81X0 Labor and delivery complicated by cord around neck, without compression, not applicable or unspecified; O70.1 Second degree perineal laceration during delivery
CPT/HCPCS: 36415; 51702; 59025; 59409; 82962; 85027; 86592; 86850; 86900; 86901; A9270-GY; J2300; J2405; J2540; J2590; J3010; J3490; J7050; J7120

== ENCOUNTER 2022-07-25 17:42 | Emergency (ER) | payer BC | END 2022-07-25 20:08 | disposition home or self-care (01) | LOC: JD.ED 17:42 | DX: R10.2 Pelvic and perineal pain (principal); E03.9 Hypothyroidism, unspecified; J45.909 Unspecified asthma, uncomplicated; Z79.899 Other long term (current) drug therapy | CPT/HCPCS: 76830; 76830-26; 99283; 99284 ==